=== PATIENT | male | born 1980 | race Caucasian/White ===

== ENCOUNTER → 2017-10-15 | Outpatient (CLI) | payer OTHER ==
--- NOTE | 2017-10-15 11:09 | XR ---
EXAMINATION TYPE: XR ankle complete LT, XR foot complete LT DATE OF EXAM: 10/15/2017 CLINICAL HISTORY: Fall injury yesterday with pain worse over first digit. TECHNIQUE: Frontal, lateral and oblique images of the left ankle and foot are obtained. COMPARISON: None. FINDINGS: There is no acute fracture/dislocation evident in the left ankle. The ankle mortise appea rs within normal limits. The overlying soft tissue appears unremarkable. There is acute comminuted minimally displaced intra-articular fracture through the medial base of the first distal phalanx also involving dorsal surface. The joint spaces in the left foot are preserved . Overlying soft tissue is unremarkable. IMPRESSION: There is acute comminuted minimally displaced intra-articular fracture through the dorsa l medial proximal meta-epiphysis of the first distal phalanx. (Initial encounter closed type post traumatic fracture).
== END | disposition home or self-care (01) ==
LOC: RADXRMAIN 10:46
PROVIDERS: ATTEND Emergency Medicine
DX: S92.422A Displaced fracture of distal phalanx of left great toe, initial encounter for closed fracture (principal); S90.02XA Contusion of left ankle, initial encounter

== ENCOUNTER 2018-05-20 14:38 | Emergency (ER) | payer OTHER ==
[2018-05-20 15:11] VITALS: BP 151/89; PULSE 91; RESP 18; TEMP 99.4
[2018-05-20] MEDS ORDERED: PROPARACAINE 0.5% OPHTH DROPS 15 ML BTL BOTH EYES STA (15:17)
[2018-05-20] MEDS ORDERED: TOBRAMYCIN 0.3% OPHTH DROPS 5 ML BTL RIGHT EYE STA (15:55)
--- NOTE | 2018-05-20 16:09 | ED ---
Eye Problem HPI - General Chief complaint: Eye Problems Stated complaint: piece of brick in eye-[facility] Time Seen by Provider: 05/20/18 15:17 Source: patient, RN notes reviewed, old records reviewed Mode of arrival: ambulatory Limitations: no limitations - History of Present Illness Initial comments: Pt is a 37 year old male with L eye irritiation, after hitting bricks at work and believing a piece of brick landed into eye. Patient denies wearing contacts. Denies visual changes. - Related Data Home Medications Medication Instructions Recorded Confirmed No Known Home Medications 05/20/18 05/20/18 Allergies Allergy/AdvReac Type Severity Reaction Status Date / Time chloride [From Pedialyte] AdvReac Unknown Verified 05/20/18 15:36 Childhood dextrose [From Pedialyte] AdvReac Unknown Verified 05/20/18 15:36 Childhood electrolytes for oral AdvReac Unknown Verified 05/20/18 15:36 solution Childhood [From Pedialyte] potassium [From Pedialyte] AdvReac Unknown Verified 05/20/18 15:36 Childhood sodium [From Pedialyte] AdvReac Unknown Verified 05/20/18 15:36 Childhood Review of Systems ROS Statement: Those systems with pertinent positive or pertinent negative responses have been documented in the HPI. ROS Other: All systems not noted in ROS Statement are negative. Past Medical History Past Medical History: No Reported History History of Any Multi-Drug Resistant Organisms: None Reported Past Surgical History: No Surgical Hx Reported Past Psychological History: Anxiety, Panic Disorder Smoking Status: Current some day smoker Past Alcohol Use History: None Reported Past Drug Use History: None Reported General Exam - General Exam Comments Initial Comments: 37 year old male, no distress. Limitations: no limitations General appearance: alert, in no apparent distress Head exam: Present: atraumatic, normocephalic, normal inspection Eye exam: Present: normal appearance, PERRL, EOMI, conjunctival injection (L eye, corneal abrasion at 6 oclock position. ). Absent: scleral icterus, periorbital swelling ENT exam: Present: normal exam, mucous membranes moist Neck exam: Present: normal inspection. Absent: tenderness, meningismus, lymphadenopathy Respiratory exam: Present: normal lung sounds bilaterally. Absent: respiratory distress, wheezes, rales, rhonchi, stridor Cardiovascular Exam: Present: regular rate, normal rhythm, normal heart sounds. Absent: systolic murmur, diastolic murmur, rubs, gallop, clicks Extremities exam: Present: normal inspection, full ROM, normal capillary refill. Absent: tenderness, pedal edema, joint swelling, calf tenderness Back exam: Present: normal inspection Neurological exam: Present: alert, oriented X3, CN II-XII intact Psychiatric exam: Present: normal affect, normal mood Skin exam: Present: warm, dry, intact, normal color. Absent: rash Course Vital Signs 05/20/18 15:08 Temperature 99.4 F Pulse Rate 91 Respiratory 18 Rate Blood Pressure 151/89 O2 Sat by Pulse 97 Oximetry Medical Decision Making - Medical Decision Making 37 year old male concern for L eye irritation after hitting bricks and thinking a piece of brick went into his eye. Patient has corneal abrasion. No evidence of foreign body. Patient has saud advised to follow up with optho. Given referral and antibiotics for eyes. Disposition Clinical Impression: Injury of conjunctiva and corneal abrasion of left eye w/o FB Disposition: HOME SELF-CARE Condition: Good Instructions (If sedation given, give patient instructions): Corneal Abrasion (ED), Eye Foreign Body (ED) Additional Instructions: Patient advised and close follow-up with primary care physician. Patient should take the medication in the eye every 4 hours. If symptoms persist greater than 24-48 hours please follow up with ophthalmology. Is patient prescribed a controlled substance at d/c from ED?: No Referrals: Samy De Souza MD [Primary Care Provider] - 1-2 days Christopher Langford MD [STAFF PHYSICIAN] - 1-2 days Time of Disposition: 16:08
== END 2018-05-20 16:49 | disposition home or self-care (01) ==
LOC: EC 14:38
DX: S05.02XA Injury of conjunctiva and corneal abrasion without foreign body, left eye, initial encounter (principal); F17.200 Nicotine dependence, unspecified, uncomplicated; Z88.8 Allergy status to other drugs, medicaments and biological substances; W22.8XXA Striking against or struck by other objects, initial encounter; Y92.69 Other specified industrial and construction area as the place of occurrence of the external cause; Y99.0 Civilian activity done for income or pay
CPT/HCPCS: 99283

== ENCOUNTER → 2023-08-24 | Outpatient (CLI) | payer OTHER ==
--- NOTE | 2023-08-24 16:01 | XR ---
EXAMINATION TYPE: XR wrist complete RT DATE OF EXAM: 08/24/2023 COMPARISON: None HISTORY: Pain TECHNIQUE: 4 view right wrist FINDINGS: No acute fractures or dislocations are evident. Joint spaces are preserved. Soft tissues ap pear normal. If there is pain at the anatomic snuff box, nuclear medicine bone scan could be performed for additio nal evaluation. Follow up exams can be performed 7-10 days from acute trauma for continued pain. IMPRESSION: 1. No acute osseous abnormality right wrist.
--- NOTE | 2023-08-24 16:02 | XR ---
EXAMINATION TYPE: XR hand complete RT DATE OF EXAM: 08/24/2023 COMPARISON: None HISTORY: Pain TECHNIQUE: 3 view right hand FINDINGS: No acute fracture or dislocation is evident. Joint space mild narrowing within the proximal and distal interphalangeal joint spaces. Soft tissues appear normal. Follow up exams can be performed 7-10 days from acute trauma for continued pain. IMPRESSION: 1. Mild degenerative joint changes.
== END | disposition home or self-care (01) ==
LOC: RADXRMAIN 15:08
PROVIDERS: ATTEND Internal Medicine
DX: M19.041 Primary osteoarthritis, right hand (principal); G56.01 Carpal tunnel syndrome, right upper limb